=== PATIENT | male | born 1970 | race African-American/Black ===

== ENCOUNTER 2016-08-19 17:26 | Emergency (ER) | payer OTHER ==
[~2016-08-19] VITALS: Ht 182.9 cm; Wt 83.9 kg
[2016-08-19 17:26] VITALS: BP 148/84
== END 2016-08-19 18:12 | disposition home or self-care (01) ==
LOC: ER 17:28
DX: I10 Essential (primary) hypertension (principal); F17.200 Nicotine dependence, unspecified, uncomplicated; Z88.0 Allergy status to penicillin
CPT/HCPCS: 99281; A4606; Z7610; Z7502